=== PATIENT | male | born 2000 | race Hispanic/Latino ===

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

== ENCOUNTER 2021-01-10 23:58 | Emergency (ER) | payer SELFPAY ==
[2021-01-11] MEDS ORDERED: LIDOCAINE 1% W/EPI 1:100,000 MDV 20 ML VIAL ONE (01:44)
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
--- NOTE | 2021-01-11 02:10 | EDPHYS ---
Physician Documentation [facility] Name: Yogi Epstein Age: 20 yrs Sex: Male : 2000 Arrival Date: 01/10/2021 Time: 23:59 Bed 17 Private MD: ED Physician Grover Fenton HPI: 01/11 02:02 This 20 yrs old Male presents to ER via Wheelchair with complaints of Hand kimberli Injury, Laceration To Hand, Passed Out Prior To Arrival. 02:02 The patient or guardian reports decreased range of motion, injury, a laceration, 5 kimberli cm(s). The complaints affect the dorsal aspect of middle phalanx of right index finger and dorsal aspect of proximal phalanx of right index finger. Context: The problem was sustained at home. Onset: The symptoms/episode began/occurred just prior to arrival. Modifying factors: The symptoms are alleviated by elevation, the symptoms are aggravated by movement, dependent position. Associated signs and symptoms:. Severity of symptoms: At their worst the symptoms were mild, in the emergency department the symptoms are unchanged. The patient has not experienced similar symptoms in the past. Historical: - Allergies: 00:24 No Known Allergies; em - PMHx: 00:24 None; em - PSHx: 00:24 None; em - Immunization history:: Adult Immunizations not up to date. - Social history:: Smoking status: Patient denies any tobacco usage or history of. - Family history:: not pertinent. ROS: 02:02 Constitutional: Negative for fever, chills, and weight loss, Eyes: Negative for injury, kimberli pain, redness, and discharge, ENT: Negative for injury, pain, and discharge, Neck: Negative for injury, pain, and swelling, Cardiovascular: Negative for chest pain, palpitations, and edema, Respiratory: Negative for shortness of breath, cough, wheezing, and pleuritic chest pain, Abdomen/GI: Negative for abdominal pain, nausea, vomiting, diarrhea, and constipation, Back: Negative for injury and pain, : Negative for injury, bleeding, discharge, and swelling, Skin: Negative for injury, rash, and discoloration, Neuro: Negative for headache, weakness, numbness, tingling, and seizure, Psych: Negative for depression, anxiety, suicide ideation, homicidal ideation, and hallucinations, Allergy/Immunology: Negative for hives, rash, and allergies, Endocrine: Negative for neck swelling, polydipsia, polyuria, polyphagia, and marked weight changes. 02:02 MS/extremity: Positive for decreased range of motion, pain, swelling. Exam: 02:02 Constitutional: This is a well developed, well nourished patient who is awake, alert, kimberli and in no acute distress. Head/Face: Normocephalic, atraumatic. Eyes: Pupils equal round and reactive to light, extra-ocular motions intact. Lids and lashes normal. Conjunctiva and sclera are non-icteric and not injected. Cornea within normal limits. Periorbital areas with no swelling, redness, or edema. ENT: Nares patent. No nasal discharge, no septal abnormalities noted. Tympanic membranes are normal and external auditory canals are clear. Oropharynx with no redness, swelling, or masses, exudates, or evidence of obstruction, uvula midline. Mucous membranes moist. Neck: Trachea midline, no thyromegaly or masses palpated, and no cervical lymphadenopathy. Supple, full range of motion without nuchal rigidity, or vertebral point tenderness. No Meningismus. Chest/axilla: Normal chest wall appearance and motion. Nontender with no deformity. No lesions are appreciated. Cardiovascular: Regular rate and rhythm with a normal S1 and S2. No gallops, murmurs, or rubs. Normal PMI, no JVD. No pulse deficits. Respiratory: Lungs have equal breath sounds bilaterally, clear to auscultation and percussion. No rales, rhonchi or wheezes noted. No increased work of breathing, no retractions or nasal flaring. Abdomen/GI: Soft, non-tender, with normal bowel sounds. No distension or tympany. No guarding or rebound. No evidence of tenderness throughout. Back: No spinal tenderness. No costovertebral tenderness. Full range of motion. Skin: Warm, dry with normal turgor. Normal color with no rashes, no lesions, and no evidence of cellulitis. Neuro: Awake and alert, GCS 15, oriented to person, place, time, and situation. Cranial nerves II-XII grossly intact. Motor strength 5/5 in all extremities. Sensory grossly intact. Cerebellar exam normal. Normal gait. Psych: Awake, alert, with orientation to person, place and time. Behavior, mood, and affect are within normal limits. 02:02 Musculoskeletal/extremity: ROM: full active range of motion, full passive range of motion, Pulses: noted to be 4+ in the bilateral radial, brachial, femoral, popliteal, posterior tibial and and dorsalis pedis arteries., Sensation intact. Joints: All joints appear normal with full range of motion. Tendon exam: specific tendon testing normal through active and passive range of motion DVT Exam: negative Homans' sign noted on exam, no appreciated bluish discoloration, no erythema, no increased warmth, pain, swelling, tenderness. Vital Signs: 00:22 BP 118 / 67; Pulse 98; Resp 16; Temp 98.4; Pulse Ox 99% on R/A; Weight 52.16 kg; Height em 5 ft. 5 in. (165.10 cm); Pain 8/10; 02:37 BP 116 / 72; Pulse 94; Resp 16; Pulse Ox 99% on R/A; jm8 00:22 Body Mass Index 19.14 (52.16 kg, 165.10 cm) em Laceration: 02:02 Wound Repair of 5cm ( 2.0in ) subcutaneous laceration to dorsal aspect of proximal kimberli phalanx of right index finger. Linear shaped.. Distal neuro/vascular/tendon intact. Anesthesia: Local anesthetic administered with 8 mls of 1% lidocaine, 5 mls of 1% lidocaine. Wound prep: Moderate cleansing by me. Skin closed with 5 5-0 Prolene using vertical mattress sutures and sterile technique. Dressed with Neosporin, non-adherent dressing. Patient tolerated well. MDM: 01:17 Patient medically screened. [facility] 02:02 Differential diagnosis: dislocation, open fracture, closed fracture, contusion, kimberli abrasion, tendonitis. Data reviewed: vital signs, nurses notes, radiologic studies, plain films. Data interpreted: fishing game warden: rate is 98 beats/min, rhythm is regular, Pulse oximetry: on room air is 99 %. Test interpretation: by ED physician or midlevel provider: plain radiologic studies. Counseling: I had a detailed discussion with the patient and/or guardian regarding: the historical points, exam findings, and any diagnostic results supporting the discharge/admit diagnosis, lab results, radiology results, the need for outpatient follow up, for definitive care, a hand specialist. 01/11 01:52 Order name: Hand Right 3 View XRAY em 07/13 01:26 Order name: Suture Tray at Bedside; Complete Time: : jm8 01/11 01:26 Order name: Sterile Gloves; Complete Time: jm8 Administered Medications: 01:38 Drug: Lidocaine-Epinephrine -1%: (1:100,000) 20 ml Volume: 20 ml; Route: Infiltration; jm8 02:27 Drug: Neosporin (aqbipyee-[id number]) Ointment 1 application Route: Topical; jm8 Site: right hand; 02:27 Drug: KeFLEX (cephalexin) 500 mg Route: PO; jm8 02:36 Follow up: Response: No adverse reaction jm8 02:27 Drug: Motrin (ibuprofen) 600 mg Route: PO; jm8 02:36 Follow up: Response: No adverse reaction jm8 Disposition Summary: 01/11/21 02:10 Discharge Ordered Location: Home kimberli Problem: new kimberli Symptoms: have improved kimberli Condition: Stable kimberli Diagnosis - Laceration without foreign body of right hand, initial encounter kimberli Followup: kimberli - With: Private Physician - When: 2 - 3 days - Reason: Recheck today's complaints, Continuance of care, Re-evaluation by your physician Followup: kimberli - With: Anthony Aquino MD - When: 2 - 3 days - Reason: Wound Recheck, Re-evaluation by your physician Discharge Instructions: - Discharge Summary Sheet [facility] - Laceration Care, Adult [facility] Forms: - Medication Reconciliation Form [facility] - Thank You Letter kimberli - Antibiotic Education kimberli - Prescription Opioid Use [facility] Prescriptions: - Cephalexin 500 mg Oral Capsule - take 1 capsule by ORAL route every 6 hours for 7 days; 28 capsule; Refills: 0, [facility] Product Selection Permitted - Ibuprofen 600 mg Oral Tablet - take 1 tablet by ORAL route every 6 hours As needed take with food; 20 tablet; [facility] Refills: 0, Product Selection Permitted Signatures: Dispatcher [employer] Grover Park MD MD cha Munoz, Edgar, RN RN Pb Mc RN RN jm8
[2021-01-11] MEDS ORDERED: IBUPROFEN 200 MG TAB PO ONE (02:38)
[2021-01-11] MEDS ORDERED: CEPHALEXIN 250 MG CAP ONE (02:39)
[2021-01-11 02:44] VITALS: TEMP 98.4; O2SAT 99
[2021-01-11 02:46] VITALS: BP 116/72
--- NOTE | 2021-01-11 08:18 | RAD REPORT ---
EXAM DESCRIPTION: RAD - Hand Right 3 View - 01/11/2021 2:13 am CLINICAL HISTORY: Right hand pain status post injury FINDINGS: No fracture or dislocation is seen. A radiopaque foreign body is not noted
== END 2021-01-11 02:38 | disposition home or self-care (01) ==
LOC: ER 23:58
PROC: 0JQJ0ZZ Repair Right Hand Subcutaneous Tissue and Fascia, Open Approach (ICD-10-PCS; principal; 2021-01-11)
DX: S61.210A Laceration without foreign body of right index finger without damage to nail, initial encounter (principal); W26.9XXA Contact with unspecified sharp object(s), initial encounter; Y92.009 Unspecified place in unspecified non-institutional (private) residence as the place of occurrence of the external cause
CPT/HCPCS: 99283

== ENCOUNTER 2022-12-23 23:02 | Emergency (ER) | payer SELFPAY ==
[2022-12-24] MEDS ORDERED: dexAMETHasone 10 MG/ML VIAL ONE (00:08)
[2022-12-24] MEDS ORDERED: ACETAMINOPHEN 500 MG TAB ONE (00:08)
--- NOTE | 2022-12-24 01:07 | EDPHYS ---
Physician Documentation [facility] Name: Yogi Epstein Age: 22 yrs Sex: Male : 2000 Arrival Date: 12/23/2022 Time: 23:02 Bed 17 Private MD: ED Physician Alexx Ragsdale HPI: 12/23 23:44 This 22 yrs old Male presents to ER via Ambulatory with complaints of Sore ms3 Throat, Fever, Ear Pain, Body feel numb. 23:44 22-year-old male with no past medical history presents for sore throat, swollen ms3 tonsils, subjective fever for 3 days. Patient states his discomfort is a 7/10. Patient endorses body aches. Patient denies nausea vomiting. Patient denies alleviating or inciting factors. Patient last took ibuprofen at 5 PM. Historical: - Allergies: 23:22 No Known Allergies; jb4 - PMHx: 23:22 None; jb4 - PSHx: 23:22 Left arm; jb4 - Immunization history:: Adult Immunizations up to date. - Social history:: Smoking status: Patient denies any tobacco usage or history of. Patient/guardian denies using alcohol, street drugs. ROS: 23:44 Neck: Negative for injury, pain, and swelling, Cardiovascular: Negative for chest pain, ms3 and palpitations. Respiratory: Negative for shortness of breath, cough, wheezing, and pleuritic chest pain, Abdomen/GI: Negative for abdominal pain, nausea, vomiting, diarrhea, and constipation, MS/Extremity: Negative for injury and deformity, Skin: Negative for injury, rash, and discoloration. 23:44 Constitutional: Positive for body aches, chills, fever. 23:44 All other systems are negative. Exam: 23:44 Constitutional: This is a well developed, well nourished patient who is awake, alert, ms3 and in no acute distress. Head/Face: Normocephalic, atraumatic. Neck: Trachea midline, no cervical lymphadenopathy. Supple, full range of motion without nuchal rigidity, or vertebral point tenderness. No Meningismus. Chest/axilla: Normal chest wall appearance and motion. Nontender with no deformity. Cardiovascular: Regular rate and rhythm with a normal S1 and S2. No gallops, murmurs, or rubs. Normal PMI, no JVD. No pulse deficits. Respiratory: Lungs have equal breath sounds bilaterally, clear to auscultation and percussion. No rales, rhonchi or wheezes noted. No increased work of breathing, no retractions or nasal flaring. Abdomen/GI: Soft, non-tender, with normal bowel sounds. No distension or tympany. No guarding or rebound. No evidence of tenderness throughout. Skin: Warm, dry with normal turgor. Normal color with no rashes, no lesions, and no evidence of cellulitis. MS/ Extremity: Pulses equal, no cyanosis. Neurovascular intact. Full, normal range of motion. 23:44 ENT: External ear(s): are unremarkable, Ear canal(s): no acute changes, TM's: no acute changes. Vital Signs: 23:21 BP 127 / 74; Pulse 74; Resp 16; Temp 99(O); Pulse Ox 100% ; Weight 54.43 kg (R); Height jb4 5 ft. 2 in. (R); 12/24 00:25 BP 106 / 67; Pulse 61; Resp 16; Pulse Ox 100% on R/A; jb4 01:22 BP 104 / 68; Pulse 65; Resp 16; Pulse Ox 100% on R/A; jb4 12/23 23:21 Body Mass Index 21.95 (54.43 kg, 157.48 cm) jb4 MDM: 12/23 23:34 Patient medically screened. ms3 23:44 Differential diagnosis: pharyngitis, tonsillitis, viral syndrome Flu versus COVID. ms3 12/24 01:06 Data reviewed: vital signs, nurses notes, lab test result(s), and as a result, I will ms3 discharge patient. I considered the following discharge prescriptions or medication management in the emergency department Medications were administered in the Emergency Department. See MAR. Care significantly affected by the following Social Determinants of Health: Poor access to healthcare and/or lack of insurance. Counseling: I had a detailed discussion with the patient and/or guardian regarding: the historical points, exam findings, and any diagnostic results supporting the discharge/admit diagnosis, lab results, the need for outpatient follow up, to return to the emergency department if symptoms worsen or persist or if there are any questions or concerns that arise at home. Special discussion: I discussed with the patient/guardian in detail that at this point there is no indication for admission to the hospital. It is understood, however, that if the symptoms persist or worsen the patient needs to return immediately for re-evaluation. 12/23 23:37 Order name: Flu; Complete Time: 00:58 ms3 12/23 23:37 Order name: COVID-19 SARS RT PCR; Complete Time: 00:58 ms3 12/23 23:37 Order name: Rapid Strep; Complete Time: 00:58 ms3 12/24 00:41 Order name: Throat Culture EDMS Administered Medications: 00:05 Drug: Dexamethasone IM 10 mg Route: IM; Site: right deltoid; jb4 00:06 Drug: Acetaminophen PO 1000 mg Route: PO; jb4 Disposition Summary: 12/24/22 01:06 Discharge Ordered Location: Home ms3 Condition: Stable ms3 Diagnosis - Pain in throat ms3 - Otalgia, left ear ms3 - Myalgia ms3 Followup: ms3 - With: Buddy Mora MD - When: 2 - 3 days - Reason: Recheck today's complaints Discharge Instructions: - Discharge Summary Sheet ms3 - Earache, Adult ms3 - Sore Throat, [id number] ms3 Forms: - Medication Reconciliation Form ms3 - Thank You Letter ms3 - Antibiotic Education ms3 - Prescription Opioid Use ms3 Prescriptions: - Ibuprofen 600 mg Oral Tablet - take 1 tablet by ORAL route every 6 hours As needed take with food; 30 tablet; ms3 Refills: 0, Product Selection Permitted Signatures: Dispatcher [employer] Bert Emmanuel RN RN jb4 Alexx Ragsdale DO DO ms3 Corrections: (The following items were deleted from the chart) 12/23 23:45 23:44 22-year-old male with no past medical history presents for sore throat, swollen ms3 tonsils, subjective fever. ms3
--- NOTE | 2022-12-24 01:07 | ER ---
Nurse's Notes [facility] Name: Yogi Epstein Age: 22 yrs Sex: Male : 2000 Arrival Date: 12/23/2022 Time: 23:02 Bed 17 Private MD: Diagnosis: Pain in throat;Otalgia, left ear;Myalgia Presentation: 12/23 23:21 Chief complaint: Parent and/or Guardian states: He has had a soar throat and swollen jb4 tonsils for the past few days. The left side of his face is hurting and his body feels numb. They said he had a fever yesterday. Coronavirus screen: At this time, the client does not indicate any symptoms associated with coronavirus-19. Ebola Screen: No symptoms or risks identified at this time. Initial Sepsis Screen: Does the patient meet any 2 criteria? No. Patient's initial sepsis screen is negative. Does the patient have a suspected source of infection? No. Patient's initial sepsis screen is negative. Risk Assessment: Do you want to hurt yourself or someone else? Patient reports no desire to harm self or others. Onset of symptoms was December 23, 2022. Transition of care: patient was not received from another setting of care. 23:21 Method Of Arrival: Ambulatory jb4 23:21 Acuity: MAGUE 4 jb4 Historical: - Allergies: 23:22 No Known Allergies; jb4 - PMHx: 23:22 None; jb4 - PSHx: 23:22 Left arm; jb4 - Immunization history:: Adult Immunizations up to date. - Social history:: Smoking status: Patient denies any tobacco usage or history of. Patient/guardian denies using alcohol, street drugs. Screenin/25 01:24 [facility] ED Fall Risk Assessment (Adult) History of falling in the last 3 months, jb4 including since admission No falls in past 3 months (0 pts) Confusion or Disorientation No (0 pts) Score/Fall Risk Level 0 - 2 = Low Risk Oriented to surroundings, Maintained a safe environment. Abuse screen: Denies threats or abuse. Nutritional screening: No deficits noted. Tuberculosis screening: No symptoms or risk factors identified. Assessment: 12/23 23:28 General: Appears in no apparent distress. uncomfortable, Behavior is calm, cooperative, jb4 appropriate for age. Pain: Complains of pain in Soar throat Pain does not radiate. Pain currently is 8 out of 10 on a pain scale. Neuro: Level of Consciousness is awake, alert, obeys commands, Oriented to person, place, time, situation. Cardiovascular: Patient's skin is warm and dry. Respiratory: Airway is patent Respiratory effort is even, unlabored, Respiratory pattern is regular, symmetrical. GI: No signs and/or symptoms were reported involving the gastrointestinal system. : No signs and/or symptoms were reported regarding the genitourinary system. EENT: Throat is clear has enlarged tonsils bilaterally. Derm: Skin is intact, Skin is pink, warm \T\ dry. Musculoskeletal: Circulation, motion, and sensation intact. Range of motion: intact in all extremities. 12/24 00:25 Reassessment: Patient appears in no apparent distress at this time. Patient and/or jb4 family updated on plan of care and expected duration. Pain level reassessed. Patient is alert, oriented x 3, equal unlabored respirations, skin warm/dry/pink. 01:22 Reassessment: Patient appears in no apparent distress at this time. Patient and/or jb4 family updated on plan of care and expected duration. Pain level reassessed. Patient is alert, oriented x 3, equal unlabored respirations, skin warm/dry/pink. Vital Signs: 12/23 23:21 BP 127 / 74; Pulse 74; Resp 16; Temp 99(O); Pulse Ox 100% ; Weight 54.43 kg (R); Height jb4 5 ft. 2 in. (R); 12/24 00:25 BP 106 / 67; Pulse 61; Resp 16; Pulse Ox 100% on R/A; jb4 01:22 BP 104 / 68; Pulse 65; Resp 16; Pulse Ox 100% on R/A; jb4 12/23 23:21 Body Mass Index 21.95 (54.43 kg, 157.48 cm) jb4 ED Course: 12/23 23:08 Patient arrived in ED. es 23:12 Alexx Ragsdale DO is Attending Physician. ms3 23:17 Bert Dash, RN is Primary Nurse. jb4 23:22 Triage completed. jb4 23:22 Arm band placed on right wrist. jb4 12/24 01:05 Buddy Mora MD is Referral Physician. ms3 01:24 Patient has correct armband on for positive identification. Bed in low position. Call jb4 light in reach. Side rails up X 1. Client placed on continuous cardiac and pulse oximetry monitoring. NIBP monitoring applied. 01:24 No provider procedures requiring assistance completed. Patient did not have IV access jb4 during this emergency room visit. Administered Medications: 00:05 Drug: Dexamethasone IM 10 mg Route: IM; Site: right deltoid; jb4 00:06 Drug: Acetaminophen PO 1000 mg Route: PO; jb4 Medication: 01:24 VIS not applicable for this client. jb4 Outcome: 01:06 Discharge ordered by . ms3 01:24 Discharged to home ambulatory, with family. jb4 01:24 Condition: stable 01:24 Discharge instructions given to patient, Instructed on discharge instructions, follow up and referral plans. medication usage, Demonstrated understanding of instructions, follow-up care, medications, Prescriptions given X 1. 01:25 Patient left the ED. jb4 Signatures: Dahiana Sanchez James RN RN jb4 Alexx Ragsdale DO DO ms3
[2022-12-24 01:29] VITALS: TEMP 99; O2SAT 100
[2022-12-24 01:32] VITALS: BP 104/68
== END 2022-12-24 01:25 | disposition home or self-care (01) ==
LOC: ER 23:02
DX: R07.0 Pain in throat (principal); H92.02 Otalgia, left ear; M79.10 Myalgia, unspecified site; R50.9 Fever, unspecified; Z20.822 Contact with and (suspected) exposure to COVID-19
CPT/HCPCS: 87070; 87081; 87635; 87804; 96372; 99284; J1100

== ENCOUNTER 2024-04-07 12:17 | Emergency (ER) | payer SELFPAY ==
--- NOTE | 2024-04-07 13:29 | RAD REPORT ---
EXAMINATION: Forearm Right CLINICAL INDICATION: Male, 23 years old. PAIN COMPARISON: No prior exam. FINDINGS: No acute fracture. No malalignment/dislocation. No significant focal degenerative change. Other: n/a IMPRESSION: No acute osseous abnormality.
--- NOTE | 2024-04-07 14:28 | EDPHYS ---
Physician Documentation [facility] Name: Yogi Epstein Age: 23 yrs Sex: Male : 2000 Arrival Date: 04/07/2024 Time: 12:17 Bed DX3 Private MD: ED Physician Grover Fenton HPI: 04/07 14:15 This 23 yrs old Male presents to ER via Ambulatory with complaints of Arm kimberli Injury - right. 14:15 The patient or guardian complains of decreased range of motion, pain, that is acute, kimberli swelling, tenderness. The complaints affect the dorsal aspect of right forearm and palmar aspect of right forearm. Onset: The symptoms/episode began/occurred just prior to arrival. Modifying factors: The symptoms are alleviated by remaining still, the symptoms are aggravated by movement. Severity of symptoms: At their worst the symptoms were moderate, in the emergency department the symptoms are unchanged. The patient has not experienced similar symptoms in the past. Historical: - Allergies: 12:37 No Known Allergies; cm10 - Home Meds: 12:37 None [Active]; cm10 - PMHx: 12:37 None; cm10 - PSHx: 12:37 left arm; cm10 - Immunization history:: Adult Immunizations up to date. - Infectious Disease History:: Denies. - Social history:: Smoking status: Patient denies any tobacco usage or history of. - Family history:: not pertinent. ROS: 14:16 Constitutional: Negative for fever, chills, and weight loss, Eyes: Negative for injury, kimberli pain, redness, and discharge, ENT: Negative for injury, pain, and discharge, Neck: Negative for injury, pain, and swelling, Cardiovascular: Negative for chest pain, palpitations, and edema, Respiratory: Negative for shortness of breath, cough, wheezing, and pleuritic chest pain, Abdomen/GI: Negative for abdominal pain, nausea, vomiting, diarrhea, and constipation, Back: Negative for injury and pain, : Negative for injury, bleeding, discharge, and swelling, Skin: Negative for injury, rash, and discoloration, Neuro: Negative for headache, weakness, numbness, tingling, and seizure, Psych: Negative for depression, anxiety, suicide ideation, homicidal ideation, and hallucinations, Allergy/Immunology: Negative for hives, rash, and allergies, Endocrine: Negative for neck swelling, polydipsia, polyuria, polyphagia, and marked weight changes, Hematologic/Lymphatic: Negative for swollen nodes, abnormal bleeding, and unusual bruising, 14:16 MS/extremity: Positive for decreased range of motion, pain, swelling, tenderness, of the dorsal aspect of right forearm and palmar aspect of right forearm, Exam: 14:16 Constitutional: This is a well developed, well nourished patient who is awake, alert, kimberli and in no acute distress. Head/Face: Normocephalic, atraumatic. Eyes: Pupils equal round and reactive to light, extra-ocular motions intact. Lids and lashes normal. Conjunctiva and sclera are non-icteric and not injected. Cornea within normal limits. Periorbital areas with no swelling, redness, or edema. ENT: Nares patent. No nasal discharge, no septal abnormalities noted. Tympanic membranes are normal and external auditory canals are clear. Oropharynx with no redness, swelling, or masses, exudates, or evidence of obstruction, uvula midline. Mucous membranes moist. Neck: Trachea midline, no thyromegaly or masses palpated, and no cervical lymphadenopathy. Supple, full range of motion without nuchal rigidity, or vertebral point tenderness. No Meningismus. Chest/axilla: Normal chest wall appearance and motion. Nontender with no deformity. No lesions are appreciated. Cardiovascular: Regular rate and rhythm with a normal S1 and S2. No gallops, murmurs, or rubs. Normal PMI, no JVD. No pulse deficits. Respiratory: Lungs have equal breath sounds bilaterally, clear to auscultation and percussion. No rales, rhonchi or wheezes noted. No increased work of breathing, no retractions or nasal flaring. Abdomen/GI: Soft, non-tender, with normal bowel sounds. No distension or tympany. No guarding or rebound. No evidence of tenderness throughout. Back: No spinal tenderness. No costovertebral tenderness. Full range of motion. Male : Normal genitalia with no discharge or lesions. Skin: Warm, dry with normal turgor. Normal color with no rashes, no lesions, and no evidence of cellulitis. Neuro: Awake and alert, GCS 15, oriented to person, place, time, and situation. Cranial nerves II-XII grossly intact. Motor strength 5/5 in all extremities. Sensory grossly intact. Cerebellar exam normal. Normal gait. Psych: Awake, alert, with orientation to person, place and time. Behavior, mood, and affect are within normal limits. 14:16 Musculoskeletal/extremity: ROM: limited active range of motion, limited passive range of motion, limited active range of motion due to pain, limited passive range of motion due to pain, Circulation is intact in all extremities. Sensation intact. Compartment Syndrome exam of affected extremity: is normal. DVT Exam: swelling, tenderness, Vital Signs: 12:35 BP 119 / 74; Pulse 70; Resp 16; Temp 98.9; Pulse Ox 99% on R/A; Weight 52.16 kg; Pain cm10 4/10; 12:35 Pain Scale: Adult cm10 MDM: 12:22 Patient medically screened. [facility] 14:18 Data reviewed: vital signs, nurses notes. [facility] 04/07 12:39 Order name: XRAY Forearm RIGHT; Complete Time: 14:14 cm10 04/07 14:14 Order name: Ice pack; Complete Time: 14:59 [facility] 04/07 14:14 Order name: Sling; Complete Time: 14:59 kimberli Administered Medications: 14:45 Not Given (Patient Refused): norco10 mg-325 mg 1 tabs PO once cm10 14:59 Drug: Ibuprofen PO 600 mg PO once Route: PO; cm10 14:59 Follow up: Response: Medication administered at discharge. cm10 Disposition Summary: 04/07/24 14:27 Discharge Ordered Notes: Location: Home kimberli Problem: new kimberli Symptoms: have improved kimberli Condition: Stable kimberli Diagnosis - Fall (on) (from) other stairs and steps - ladder kimberli - Pain in right forearm - contusion kimberli Followup: kimberli - With: Private Physician - When: 2 - 3 days - Reason: Recheck today's complaints, Continuance of care, Re-evaluation by your physician Followup: kimberli - With: Terry Sandhu MD - When: 2 - 3 days - Reason: Recheck today's complaints, Continuance of care, Re-evaluation by your physician Discharge Instructions: - Discharge Summary Sheet kimberli - Contusion kimberli - Musculoskeletal Pain kimberli - How to Use Cold Therapy, [id number] kimberli - Contusion, [id number] kimberli - How to Use Cold Therapy kimberli Forms: - Medication Reconciliation Form kimberli - Antibiotic Education kimberli - Prescription Opioid Use kimberli - Patient Portal Instructions [facility] - Leadership Thank You Letter [facility] Prescriptions: - acetaminophen-codeine 300-30 mg Oral tablet - take 2 tablet ORAL route every 6 hours as needed for pain; 24 tablet; Refills: [facility] 0, Product Selection Permitted - Ibuprofen 600 mg Oral tablet - take 1 tablet ORAL route every 8 hours As needed take with food; 21 tablet; kimberli Refills: 0, Product Selection Permitted Signatures: Dispatcher [employer] Grover Park MD MD cha Martinez, Clarissa RN RN cm10
--- NOTE | 2024-04-07 14:28 | ER ---
Nurse's Notes [facility] Name: Yogi Epsteni Age: 23 yrs Sex: Male : 2000 Arrival Date: 04/07/2024 Time: 12:17 Bed DX3 Private MD: Diagnosis: Fall (on) (from) other stairs and steps-ladder;Pain in right forearm-contusion Presentation: 04/07 12:35 Chief complaint: Patient states: Right arm pain s/p falling off a ladder. Pt states cm10 that he was at the very top of the ladder and it broke and he fell. Pt states that he landed on his right arm and is now having pain. No LOC, did not hit head. Coronavirus screen: Client denies travel out of the [place] in the last 14 days. Ebola Screen: Patient denies travel to an Ebola-affected area in the 21 days before illness onset. No symptoms or risks identified at this time. Initial Sepsis Screen: Does the patient meet any 2 criteria? No. Patient's initial sepsis screen is negative. Does the patient have a suspected source of infection? No. Patient's initial sepsis screen is negative. Risk Assessment: Do you want to hurt yourself or someone else? Patient reports no desire to harm self or others. Onset of symptoms was April 07, 2024. 12:35 Method Of Arrival: Ambulatory cm10 12:35 Acuity: MAGUE 4 cm10 Triage Assessment: 12:37 General: Appears in no apparent distress. comfortable. General: Behavior is calm, cm10 cooperative. Pain: Complains of pain in dorsal aspect of right forearm. Neuro: No deficits noted. Level of Consciousness is awake, alert, obeys commands, Oriented to person, place, time, situation, Appropriate for age. Injury Description: Fall. 12:37 Musculoskeletal: No deficits noted. Reports pain in palmar aspect of right forearm and cm10 dorsal aspect of right forearm. Historical: - Allergies: 12:37 No Known Allergies; cm10 - Home Meds: 12:37 None [Active]; cm10 - PMHx: 12:37 None; cm10 - PSHx: 12:37 left arm; cm10 - Immunization history:: Adult Immunizations up to date. - Infectious Disease History:: Denies. - Social history:: Smoking status: Patient denies any tobacco usage or history of. - Family history:: not pertinent. Screenin:00 [facility] ED Fall Risk Assessment (Adult) History of falling in the last 3 months, cm10 including since admission Yes- single mechanical fall (1 pt) Confusion or Disorientation No (0 pts) Intoxicated or Sedated No (0 pts) Impaired Gait No (0 pts) Mobility Assist Device Used No (0 pt) Altered Elimination No (0 pt) Score/Fall Risk Level 0 - 2 = Low Risk Oriented to surroundings, Maintained a safe environment, Hourly rounding (assess needs \T\ fall precautionary measures) done. Abuse screen: Denies threats or abuse. Denies injuries from another. Nutritional screening: No deficits noted. Tuberculosis screening: No symptoms or risk factors identified. Assessment: 15:00 Reassessment: Patient appears in no apparent distress at this time. No changes from cm10 previously documented assessment. Patient and/or family updated on plan of care and expected duration. Pain level reassessed. Vital Signs: 12:35 BP 119 / 74; Pulse 70; Resp 16; Temp 98.9; Pulse Ox 99% on R/A; Weight 52.16 kg; Pain cm10 4/10; 12:35 Pain Scale: Adult cm10 ED Course: 12:20 Patient arrived in ED. ra3 12:22 Grover Fenton MD is Attending Physician. kimberli 12:37 Triage completed. cm10 12:37 Arm band placed on left wrist. Patient placed in waiting room. cm10 13:23 XRAY Forearm RIGHT In Process Unspecified. EDMS 14:26 Terry Sandhu MD is Referral Physician. [facility] 15:00 Patient has correct armband on for positive identification. Provided Education on: cm10 Follow-up instructions. 15:00 No provider procedures requiring assistance completed. Patient did not have IV access cm10 during this emergency room visit. Sling applied to right arm. Ice pack. Administered Medications: 14:45 Not Given (Patient Refused): norco10 mg-325 mg 1 tabs PO once cm10 14:59 Drug: Ibuprofen PO 600 mg PO once Route: PO; cm10 14:59 Follow up: Response: Medication administered at discharge. cm10 Medication: 15:00 VIS not applicable for this client. cm10 Outcome: 14:27 Discharge ordered by . [facility] 15:01 Discharged to home ambulatory, cm10 15:01 Condition: good 15:01 Discharge instructions given to patient, Instructed on discharge instructions, follow up and referral plans. medication usage, Demonstrated understanding of instructions, follow-up care, medications, Prescriptions given X 2, 15:01 Patient left the ED. cm10 Signatures: Dispatcher [employer] EDMS Grover Fenton MD MD cha Martinez, Clarissa, RN RN cm10 Brie Jordan ra3 Corrections: (The following items were deleted from the chart) 15:00 12:37 Injury Description: Fall cm10 cm10
[2024-04-07] MEDS ORDERED: IBUPROFEN 200 MG TAB PO ONE (14:52)
[2024-04-07] MEDS ORDERED: IBUPROFEN 400 MG TAB ONE (14:52)
[2024-04-07 15:12] VITALS: BP 119/74; TEMP 98.9; O2SAT 99
== END 2024-04-07 15:01 | disposition home or self-care (01) ==
LOC: ER 12:17
DX: S50.11XA Contusion of right forearm, initial encounter (principal); W11.XXXA Fall on and from ladder, initial encounter
CPT/HCPCS: 99283